=== PATIENT | male | born 1980 | race Caucasian/White ===

== ENCOUNTER 2022-06-24 17:29 | Emergency (ER) | payer BC ==
[2022-06-24] MEDS ORDERED: Sodium Chloride 0.9% 10 ML Syringe FLUSH PRN ×2 (18:43→18:44)
[2022-06-24] MEDS ORDERED: Iopamidol 755 Mg/ML 100 ML Bottle IVPUSH ONE (18:44)
[2022-06-24] MEDS ORDERED: Sodium Chloride 0.9% 100 ML IV SCH (18:45)
== END 2022-06-24 20:05 | disposition home or self-care (01) ==
LOC: JD.ED 17:29
DX: R55 Syncope and collapse (principal); E04.1 Nontoxic single thyroid nodule
CPT/HCPCS: 36415; 70450; 70496; 70498; 80053; 82947; 85025; 85610; 93005; 99284; J3490; Q9967